=== PATIENT | female | born 1960 ===

== ENCOUNTER 2020-12-03 16:44 | Inpatient (IN) | payer OTHER ==
[~2020-12-03] VITALS: Ht 157.5 cm; Wt 57.9 kg
[2020-12-03 19:21] LABS: COVID AG,FIA SOURCE NASOPHARYNGEAL
[2020-12-03 20:11] LABS: APPEARANCE,URINE CLEAR (CLEAR); BILIRUBIN,URINE NEGATIVE (NEGATIVE); GLUCOSE, URINE (UA) 100 mg/dL (NEGATIVE); KETONES,URINE NEGATIVE (NEGATIVE); LEUKOCYTE ESTERASE ,URINE NEGATIVE (NEGATIVE); NITRATE,URINE NEGATIVE (NEGATIVE); OCCULT BLOOD,URINE SMALL (NEGATIVE); PROTEIN,URINE SEE CONFIRM (NEGATIVE); UROBILINOGEN,URINE 0.2 mg/dL (<=1.0)
[2020-12-03 20:19] LABS: AMPHET/METH SCREEN,URINE NEGATIVE (NEGATIVE); BARBITURATE SCREEN, URINE NEGATIVE (NEGATIVE); BENZODIAZEPINES SCREEN,URINE NEGATIVE (NEGATIVE); CANNABINOID SCREEN,URINE NEGATIVE (NEGATIVE); COCAINE SCREEN,URINE NEGATIVE (NEGATIVE); METHADONE SCREEN, URINE NEGATIVE (NEGATIVE); OPIATE SCREEN,URINE NEGATIVE (NEGATIVE)
[2020-12-03 20:21] LABS: PHENCYCLIDINE SCREEN,URINE NEGATIVE (NEGATIVE)
[2020-12-03 20:39] LABS: BACTERIA,URINE Rare /HPF (None Seen); SQUAMOUS EPITHELIAL CELL,UR Few /LPF (None Seen); SULFOSALICYLIC ACID,URINE 3+ (Negative); WBC,URINE 0-2 /HPF (0-5)
[2020-12-03 21:32] LABS: GLUCOMETER DEV NAME(LOC) ERT.5; GLUCOSE,POINT OF CARE 59 MG/DL (70-110)
[2020-12-03] MEDS ORDERED: ACETAMINOPHEN 325 MG TABLET PO PRN (21:45)
[2020-12-03] MEDS ORDERED: ONDANSETRON HCL 4 MG/2 ML VIAL IVP PRN (21:45)
[2020-12-03] MEDS ORDERED: BISACODYL 10 MG RECTAL RECTAL SUPPOSITORY PR PRN (21:45)
[2020-12-03] MEDS ORDERED: ZOLPIDEM TARTRATE 5 MG TABLET PO PRN (21:45)
[2020-12-03] MEDS ORDERED: MAGNESIUM HYDROXIDE SUSPENSION 30 ML UDCUP PO PRN (21:45)
[2020-12-03] MEDS ORDERED: LEVO50 PO (21:51)
[2020-12-03] MEDS ORDERED: FOLI-130 PO (21:53)
[2020-12-03] MEDS ORDERED: HYDR25TA2 PO (21:58)
[2020-12-03] MEDS ORDERED: METF-960 PO (21:58)
[2020-12-03 22:19] LABS: BASOPHILS % (AUTO) 0.6 % (0.0-2.0); EOSINOPHILS % (AUTO) 9.1 % (1.0-6.0); HEMATOCRIT 36.6 % (36-46); LYMPHOCYTES # (AUTO) 0.9 K/uL (1.0-4.8); LYMPHOCYTES % (AUTO) 21.3 % (22.0-44.0); MEAN CORPUSCULAR HEMOGLOBIN 26.8 pg (26.0-34.0); MEAN CORPUSCULAR HGB CONC 32.7 G/dL (31.0-37.0); MEAN CORPUSCULAR VOLUME 82 fL (80-100); MONOCYTES # (AUTO) 0.4 K/uL (0.1-1.0); MONOCYTES % (AUTO) 9.1 % (2.0-9.0); NEUTROPHILS # (AUTO) 2.6 K/uL (1.8-7.7); NEUTROPHILS % (AUTO) 59.9 % (40.0-70.0); PLATELET COUNT (AUTO) 264 K/uL (150-450); RED BLOOD CELL COUNT(AUTO) 4.48 MIL/uL (4.00-5.20); RED CELL DISTRIBUTION WIDTH 23.4 % (11.5-14.5)
[2020-12-03 22:35] VITALS: BP 142/81
[2020-12-03 22:36] LABS: ALANINE AMINOTRANSFERASE 17 U/L (12-78); ALBUMIN 3.3 g/dL (3.4-5.0); ALKALINE PHOSPHATASE 96 U/L (46-116); ANION GAP 15 mmol/L (8-16); ASPARTATE AMINOTRANSFERASE 22 U/L (15-37); BILIRUBIN,TOTAL 0.8 mg/dL (0.1-1.0); CALCIUM, TOTAL 8.1 mg/dL (8.8-10.5); CARBON DIOXIDE 25 mmol/L (22-29); CHLORIDE 104 mmol/L (98-107); GLOMERULAR FILTR. RATE CALC > 60 mL/min (>60); GLUCOSE,RANDOM 78 mg/dL (70-110); SODIUM SERUM 144 mmol/L (136-145); TOTAL PROTEIN, SERUM 7.2 g/dL (6.4-8.2); UREA NITROGEN, BLOOD 12 mg/dL (7-18)
[2020-12-03] MEDS ORDERED: HYD50 PO (22:41)
[2020-12-03 22:46] LABS: POTASSIUM 2.7 mmol/L (3.5-5.1)
[2020-12-03] MEDS ORDERED: POTASSIUM CHLORIDE 20 MEQ ER TABLET PO ONE (23:00)
[2020-12-03 23:25] LABS: PHOSPHORUS 3.4 mg/dL (2.5-4.9)
[2020-12-04 01:27] LABS: GLUCOMETER DEV NAME(LOC) 6S.1; GLUCOSE,POINT OF CARE 86 MG/DL (70-110)
[2020-12-04] MEDS ORDERED: POTASSIUM CHLORIDE 20 MEQ ER TABLET PO ONE (03:00)
[2020-12-04 05:14] VITALS: BP 124/67
[2020-12-04 07:57] VITALS: BP 143/72
[2020-12-04] MEDS: HEPARIN SODIUM,PORCINE 5,000 UNITS/ML VIAL SQ SCH ×3 (08:00→16:00)
[2020-12-04 15:53] LABS: GLUCOMETER DEV NAME(LOC) 6S.1; GLUCOSE,POINT OF CARE 72 MG/DL (70-110)
[2020-12-04 19:37] VITALS: BP 132/73
[2020-12-05 04:34] LABS: GLUCOMETER DEV NAME(LOC) 6S.1; GLUCOSE,POINT OF CARE 57 MG/DL (70-110)
[2020-12-05 04:34] LABS: GLUCOMETER DEV NAME(LOC) 6S.1; GLUCOSE,POINT OF CARE 58 MG/DL (70-110)
[2020-12-05 04:34] LABS: GLUCOMETER DEV NAME(LOC) 6S.1; GLUCOSE,POINT OF CARE 78 MG/DL (70-110)
[2020-12-05 04:50] VITALS: BP 139/86
[2020-12-05 07:11] LABS: GLUCOMETER DEV NAME(LOC) 6N.1; GLUCOSE,POINT OF CARE 50 MG/DL (70-110)
[2020-12-05 07:11] LABS: GLUCOMETER DEV NAME(LOC) 6S.1; GLUCOSE,POINT OF CARE 78 MG/DL (70-110)
[2020-12-05 07:33] VITALS: BP 145/74
[2020-12-05] MEDS: HEPARIN SODIUM,PORCINE 5,000 UNITS/ML VIAL SQ SCH ×3 (08:00→15:24)
[2020-12-05 20:01] VITALS: BP 154/79
[2020-12-05 20:47] LABS: GLUCOMETER DEV NAME(LOC) 6N.1; GLUCOSE,POINT OF CARE 73 MG/DL (70-110)
[2020-12-06 04:30] VITALS: BP 143/76
[2020-12-06 05:25] LABS: GLUCOMETER DEV NAME(LOC) 6S.1; GLUCOSE,POINT OF CARE 84 MG/DL (70-110)
[2020-12-06] MEDS: HEPARIN SODIUM,PORCINE 5,000 UNITS/ML VIAL SQ SCH ×3 (08:00→15:09)
[2020-12-06 13:46] LABS: GLUCOMETER DEV NAME(LOC) 6S.1; GLUCOSE,POINT OF CARE 92 MG/DL (70-110)
[2020-12-06 20:40] VITALS: BP 133/83
[2020-12-06 21:54] LABS: GLUCOMETER DEV NAME(LOC) 6N.1; GLUCOSE,POINT OF CARE 77 MG/DL (70-110)
[2020-12-07 04:00] VITALS: BP 131/75
[2020-12-07 08:00] VITALS: BP 141/85
[2020-12-07] MEDS: HEPARIN SODIUM,PORCINE 5,000 UNITS/ML VIAL SQ SCH ×4 (08:00→23:31)
[2020-12-07 20:31] VITALS: BP 133/71
[2020-12-07 23:50] LABS: GLUCOMETER DEV NAME(LOC) 6N.1; GLUCOSE,POINT OF CARE 148 MG/DL (70-110)
[2020-12-08 05:27] VITALS: BP 128/69
[2020-12-08 06:38] LABS: GLUCOMETER DEV NAME(LOC) 6N.1; GLUCOSE,POINT OF CARE 84 MG/DL (70-110)
[2020-12-08] MEDS: HEPARIN SODIUM,PORCINE 5,000 UNITS/ML VIAL SQ SCH ×3 (08:00→23:47)
[2020-12-08 10:30] VITALS: BP 134/82
[2020-12-08 15:31] VITALS: BP 138/83
[2020-12-08 20:11] VITALS: BP 142/82
[2020-12-08 21:50] LABS: GLUCOMETER DEV NAME(LOC) 6S.1; GLUCOSE,POINT OF CARE 109 MG/DL (70-110)
[2020-12-09 05:21] VITALS: BP 155/89
[2020-12-09] MEDS: HEPARIN SODIUM,PORCINE 5,000 UNITS/ML VIAL SQ SCH ×2 (07:58→16:00)
[2020-12-09 08:05] VITALS: BP 122/75
[2020-12-09 20:33] VITALS: BP 132/75
[2020-12-10 04:20] VITALS: BP 134/76
[2020-12-10] MEDS: HEPARIN SODIUM,PORCINE 5,000 UNITS/ML VIAL SQ SCH ×4 (07:24→23:32)
[2020-12-10 07:33] VITALS: BP 138/71
[2020-12-10] MEDS: MIRTAZAPINE 15 MG TABLET PO SCH ×2 (13:45→20:20)
[2020-12-10] MEDS: OLANZapine 5 MG TABLET PO SCH ×2 (13:45→20:20)
[2020-12-10 20:21] VITALS: BP 135/74
[2020-12-11 04:42] VITALS: BP 141/85
[2020-12-11] MEDS: HEPARIN SODIUM,PORCINE 5,000 UNITS/ML VIAL SQ SCH ×2 (08:00→15:52)
[2020-12-11 08:13] VITALS: BP 143/77
[2020-12-11] MEDS: MIRTAZAPINE 15 MG TABLET PO SCH ×2 (09:00→20:48)
[2020-12-11] MEDS: OLANZapine 5 MG TABLET PO SCH ×2 (09:00→20:48)
[2020-12-11 19:57] VITALS: BP 130/77
[2020-12-12] MEDS: HEPARIN SODIUM,PORCINE 5,000 UNITS/ML VIAL SQ SCH ×4 (08:00→23:17)
[2020-12-12] MEDS: OLANZapine 5 MG TABLET PO SCH ×2 (09:00→20:09)
[2020-12-12] MEDS: MIRTAZAPINE 15 MG TABLET PO SCH ×2 (09:00→20:09)
[2020-12-12 19:59] VITALS: BP 136/59
[2020-12-13 05:29] VITALS: BP 139/65
[2020-12-13] MEDS: HEPARIN SODIUM,PORCINE 5,000 UNITS/ML VIAL SQ SCH ×3 (08:00→23:56)
[2020-12-13] MEDS: MIRTAZAPINE 15 MG TABLET PO SCH ×2 (09:00→20:41)
[2020-12-13] MEDS: OLANZapine 5 MG TABLET PO SCH ×2 (09:00→20:41)
[2020-12-13 20:11] VITALS: BP 133/73
[2020-12-14 04:51] VITALS: BP 155/75
[2020-12-14] MEDS: HEPARIN SODIUM,PORCINE 5,000 UNITS/ML VIAL SQ SCH ×2 (08:00→16:00)
[2020-12-14 08:27] VITALS: BP 144/70
[2020-12-14] MEDS: MIRTAZAPINE 15 MG TABLET PO SCH ×2 (08:55→21:00)
[2020-12-14] MEDS: OLANZapine 5 MG TABLET PO SCH ×2 (08:55→21:00)
[2020-12-14 12:47] LABS: GLUCOMETER DEV NAME(LOC) 6S.1; GLUCOSE,POINT OF CARE 156 MG/DL (70-110)
[2020-12-14 15:48] VITALS: BP 127/71
[2020-12-14 18:11] LABS: GLUCOMETER DEV NAME(LOC) 6N.1; GLUCOSE,POINT OF CARE 80 MG/DL (70-110)
[2020-12-14 19:45] VITALS: BP 128/79
[2020-12-15 04:40] VITALS: BP 127/72
[2020-12-15] MEDS: HEPARIN SODIUM,PORCINE 5,000 UNITS/ML VIAL SQ SCH ×4 (08:00→23:29)
[2020-12-15 08:03] VITALS: BP 147/81
[2020-12-15] MEDS: MIRTAZAPINE 15 MG TABLET PO SCH ×2 (09:00→20:29)
[2020-12-15] MEDS: OLANZapine 5 MG TABLET PO SCH ×2 (09:00→20:29)
[2020-12-15 14:32] LABS: GLUCOMETER DEV NAME(LOC) 6N.1; GLUCOSE,POINT OF CARE 112 MG/DL (70-110)
[2020-12-15 19:52] VITALS: BP 130/80
[2020-12-16 05:18] VITALS: BP 143/87
[2020-12-16 07:36] VITALS: BP 145/86
[2020-12-16] MEDS: HEPARIN SODIUM,PORCINE 5,000 UNITS/ML VIAL SQ SCH ×3 (08:00→23:04)
[2020-12-16] MEDS: OLANZapine 5 MG TABLET PO SCH ×2 (08:58→21:00)
[2020-12-16] MEDS: MIRTAZAPINE 15 MG TABLET PO SCH ×2 (08:58→21:00)
[2020-12-16 12:56] LABS: GLUCOMETER DEV NAME(LOC) 6N.1; GLUCOSE,POINT OF CARE 92 MG/DL (70-110)
[2020-12-17 05:19] VITALS: BP 154/82
[2020-12-17] MEDS: HEPARIN SODIUM,PORCINE 5,000 UNITS/ML VIAL SQ SCH ×3 (08:00→23:05)
[2020-12-17] MEDS: MIRTAZAPINE 15 MG TABLET PO SCH ×2 (08:17→21:00)
[2020-12-17] MEDS: OLANZapine 5 MG TABLET PO SCH ×2 (08:17→21:00)
[2020-12-17 16:00] VITALS: BP 141/81
[2020-12-17 19:06] LABS: GLUCOMETER DEV NAME(LOC) 6S.1; GLUCOSE,POINT OF CARE 112 MG/DL (70-110)
[2020-12-17 20:51] VITALS: BP 124/71
[2020-12-18] MEDS: HEPARIN SODIUM,PORCINE 5,000 UNITS/ML VIAL SQ SCH ×2 (08:00→16:00)
[2020-12-18 08:03] VITALS: BP 140/72
[2020-12-18] MEDS: MIRTAZAPINE 15 MG TABLET PO SCH ×2 (08:08→21:00)
[2020-12-18] MEDS: OLANZapine 5 MG TABLET PO SCH ×2 (08:08→21:00)
[2020-12-18 13:58] LABS: GLUCOMETER DEV NAME(LOC) 6N.1; GLUCOSE,POINT OF CARE 93 MG/DL (70-110)
[2020-12-18 19:45] VITALS: BP 142/75
[2020-12-19 07:39] VITALS: BP 125/68
[2020-12-19] MEDS: HEPARIN SODIUM,PORCINE 5,000 UNITS/ML VIAL SQ SCH ×3 (08:00→15:42)
[2020-12-19] MEDS: OLANZapine 5 MG TABLET PO SCH ×2 (09:00→20:30)
[2020-12-19] MEDS: MIRTAZAPINE 15 MG TABLET PO SCH ×2 (09:00→20:30)
[2020-12-19] MEDS ORDERED: HALOPERIDOL LACTATE 5 MG/ML VIAL IM PRN (14:45)
[2020-12-19] MEDS: HALOPERIDOL LACTATE 5 MG/ML VIAL IM PRN (20:20)
[2020-12-19 23:50] LABS: GLUCOMETER DEV NAME(LOC) 6N.1; GLUCOSE,POINT OF CARE 113 MG/DL (70-110)
[2020-12-20] MEDS: HEPARIN SODIUM,PORCINE 5,000 UNITS/ML VIAL SQ SCH ×3 (08:00→15:35)
[2020-12-20 08:02] VITALS: BP 122/75
[2020-12-20] MEDS: MIRTAZAPINE 15 MG TABLET PO SCH ×2 (08:42→20:41)
[2020-12-20] MEDS: OLANZapine 5 MG TABLET PO SCH ×2 (08:42→20:42)
[2020-12-20] MEDS: HALOPERIDOL LACTATE 5 MG/ML VIAL IM PRN (09:08)
[2020-12-20 19:35] VITALS: BP 120/75
[2020-12-21 04:20] VITALS: BP 122/73
[2020-12-21 07:30] VITALS: BP 149/88
[2020-12-21] MEDS: HEPARIN SODIUM,PORCINE 5,000 UNITS/ML VIAL SQ SCH ×4 (08:00→22:57)
[2020-12-21] MEDS: OLANZapine 5 MG TABLET PO SCH ×2 (08:04→21:08)
[2020-12-21] MEDS: MIRTAZAPINE 15 MG TABLET PO SCH ×2 (08:04→21:08)
[2020-12-21 18:13] LABS: GLUCOMETER DEV NAME(LOC) 6S.1; GLUCOSE,POINT OF CARE 105 MG/DL (70-110)
[2020-12-21 19:50] VITALS: BP 140/78
[2020-12-21 21:57] LABS: GLUCOMETER DEV NAME(LOC) 6S.1; GLUCOSE,POINT OF CARE 143 MG/DL (70-110)
[2020-12-22 04:45] VITALS: BP 139/79
[2020-12-22] MEDS: HEPARIN SODIUM,PORCINE 5,000 UNITS/ML VIAL SQ SCH ×3 (08:00→23:41)
[2020-12-22] MEDS: OLANZapine 5 MG TABLET PO SCH ×3 (08:06→08:19)
[2020-12-22] MEDS: MIRTAZAPINE 15 MG TABLET PO SCH ×4 (08:06→20:06)
[2020-12-22] MEDS: HALOPERIDOL LACTATE 5 MG/ML VIAL IM PRN (08:15)
[2020-12-22] MEDS: OLANZapine 10 MG TABLET PO SCH ×2 (08:57→20:06)
[2020-12-22 16:01] VITALS: BP 123/80
[2020-12-22 20:10] VITALS: BP 137/76
[2020-12-22 22:03] LABS: GLUCOMETER DEV NAME(LOC) 6N.1; GLUCOSE,POINT OF CARE 76 MG/DL (70-110)
[2020-12-22 22:03] LABS: GLUCOMETER DEV NAME(LOC) 6S.1; GLUCOSE,POINT OF CARE 117 MG/DL (70-110)
[2020-12-23 05:19] VITALS: BP 148/78
[2020-12-23] MEDS: HEPARIN SODIUM,PORCINE 5,000 UNITS/ML VIAL SQ SCH ×2 (08:00→16:00)
[2020-12-23] MEDS: OLANZapine 10 MG TABLET PO SCH ×2 (08:06→20:52)
[2020-12-23] MEDS: MIRTAZAPINE 15 MG TABLET PO SCH ×2 (08:06→20:52)
[2020-12-23 14:32] LABS: GLUCOMETER DEV NAME(LOC) 6N.1; GLUCOSE,POINT OF CARE 148 MG/DL (70-110)
[2020-12-23 19:41] VITALS: BP 141/78
[2020-12-23 19:56] LABS: GLUCOMETER DEV NAME(LOC) 6S.1; GLUCOSE,POINT OF CARE 129 MG/DL (70-110)
[2020-12-23 21:08] LABS: GLUCOMETER DEV NAME(LOC) 6S.1; GLUCOSE,POINT OF CARE 119 MG/DL (70-110)
[2020-12-24 05:11] VITALS: BP 134/73
[2020-12-24] MEDS: HEPARIN SODIUM,PORCINE 5,000 UNITS/ML VIAL SQ SCH ×4 (08:00→23:45)
[2020-12-24 08:37] VITALS: BP 137/79
[2020-12-24] MEDS: OLANZapine 10 MG TABLET PO SCH ×2 (09:30→21:22)
[2020-12-24] MEDS: MIRTAZAPINE 15 MG TABLET PO SCH ×2 (09:30→21:21)
[2020-12-24 18:56] LABS: GLUCOMETER DEV NAME(LOC) 6S.1; GLUCOSE,POINT OF CARE 108 MG/DL (70-110)
[2020-12-24 19:45] VITALS: BP 119/88
[2020-12-25 05:12] VITALS: BP 142/81
[2020-12-25] MEDS: HEPARIN SODIUM,PORCINE 5,000 UNITS/ML VIAL SQ SCH ×2 (08:00→16:00)
[2020-12-25] MEDS: MIRTAZAPINE 15 MG TABLET PO SCH ×2 (08:52→20:54)
[2020-12-25] MEDS: OLANZapine 10 MG TABLET PO SCH ×2 (08:52→20:54)
[2020-12-25 12:52] LABS: GLUCOMETER DEV NAME(LOC) 6N.1; GLUCOSE,POINT OF CARE 120 MG/DL (70-110)
[2020-12-25 16:13] VITALS: BP 129/79
[2020-12-25 21:18] LABS: GLUCOMETER DEV NAME(LOC) 6N.1; GLUCOSE,POINT OF CARE 120 MG/DL (70-110)
[2020-12-25 21:23] VITALS: BP 139/51
[2020-12-26 05:08] VITALS: BP 135/76
[2020-12-26] MEDS: HEPARIN SODIUM,PORCINE 5,000 UNITS/ML VIAL SQ SCH ×3 (08:00→15:25)
[2020-12-26] MEDS: OLANZapine 10 MG TABLET PO SCH ×3 (09:00→21:39)
[2020-12-26] MEDS: MIRTAZAPINE 15 MG TABLET PO SCH ×3 (09:00→21:38)
[2020-12-26 15:45] LABS: GLUCOMETER DEV NAME(LOC) 6N.1; GLUCOSE,POINT OF CARE 96 MG/DL (70-110)
[2020-12-26 20:50] VITALS: BP 122/74
[2020-12-26 22:39] LABS: GLUCOMETER DEV NAME(LOC) 6S.1; GLUCOSE,POINT OF CARE 122 MG/DL (70-110)
[2020-12-27 04:38] VITALS: BP 138/79
[2020-12-27] MEDS: HEPARIN SODIUM,PORCINE 5,000 UNITS/ML VIAL SQ SCH ×3 (08:00→16:00)
[2020-12-27 08:11] VITALS: BP 129/83
[2020-12-27] MEDS: MIRTAZAPINE 15 MG TABLET PO SCH ×2 (08:50→20:58)
[2020-12-27] MEDS: OLANZapine 10 MG TABLET PO SCH ×2 (08:51→20:58)
[2020-12-27 13:11] LABS: GLUCOMETER DEV NAME(LOC) 6S.1; GLUCOSE,POINT OF CARE 125 MG/DL (70-110)
[2020-12-27 20:10] VITALS: BP 139/80
[2020-12-27 20:50] LABS: GLUCOMETER DEV NAME(LOC) 6S.1; GLUCOSE,POINT OF CARE 105 MG/DL (70-110)
[2020-12-28 04:33] VITALS: BP 144/81
[2020-12-28 07:34] VITALS: BP 141/77
[2020-12-28] MEDS: HEPARIN SODIUM,PORCINE 5,000 UNITS/ML VIAL SQ SCH ×3 (08:00→16:00)
[2020-12-28] MEDS: OLANZapine 10 MG TABLET PO SCH ×2 (08:01→21:00)
[2020-12-28] MEDS: MIRTAZAPINE 15 MG TABLET PO SCH ×2 (08:01→21:00)
[2020-12-28 11:34] LABS: GLUCOMETER DEV NAME(LOC) 6N.1; GLUCOSE,POINT OF CARE 151 MG/DL (70-110)
[2020-12-28 17:36] LABS: GLUCOMETER DEV NAME(LOC) 6S.1; GLUCOSE,POINT OF CARE 119 MG/DL (70-110)
[2020-12-28 20:02] VITALS: BP 115/73
[2020-12-29 05:58] VITALS: BP 145/77
[2020-12-29] MEDS: HEPARIN SODIUM,PORCINE 5,000 UNITS/ML VIAL SQ SCH ×3 (08:00→16:00)
[2020-12-29] MEDS: AmLODIPine BESYLATE 5 MG TABLET PO SCH ×2 (08:56→09:00)
[2020-12-29] MEDS: MIRTAZAPINE 15 MG TABLET PO SCH ×2 (08:56→20:08)
[2020-12-29] MEDS: OLANZapine 10 MG TABLET PO SCH ×2 (08:56→20:08)
[2020-12-29 11:59] LABS: GLUCOMETER DEV NAME(LOC) 6N.1; GLUCOSE,POINT OF CARE 84 MG/DL (70-110)
[2020-12-29 12:05] LABS: BASOPHILS % (AUTO) 0.6 % (0.0-2.0); EOSINOPHILS % (AUTO) 7.9 % (1.0-6.0); HEMATOCRIT 33.6 % (36-46); HEMOGLOBIN 11.3 g/dL (12.0-16.0); LYMPHOCYTES % (AUTO) 20.1 % (22.0-44.0); MEAN CORPUSCULAR HEMOGLOBIN 28.3 pg (26.0-34.0); MEAN CORPUSCULAR HGB CONC 33.7 G/dL (31.0-37.0); MEAN CORPUSCULAR VOLUME 84 fL (80-100); MONOCYTES # (AUTO) 0.4 K/uL (0.1-1.0); MONOCYTES % (AUTO) 8.8 % (2.0-9.0); NEUTROPHILS # (AUTO) 3.2 K/uL (1.8-7.7); NEUTROPHILS % (AUTO) 62.6 % (40.0-70.0); PLATELET COUNT (AUTO) 275 K/uL (150-450); RED CELL DISTRIBUTION WIDTH 19.1 % (11.5-14.5)
[2020-12-29 12:32] LABS: ALANINE AMINOTRANSFERASE 20 U/L (12-78); ALBUMIN 2.5 g/dL (3.4-5.0); ALKALINE PHOSPHATASE 138 U/L (46-116); ANION GAP 10 mmol/L (8-16); ASPARTATE AMINOTRANSFERASE 18 U/L (15-37); BILIRUBIN,TOTAL 0.5 mg/dL (0.1-1.0); CALCIUM, TOTAL 8.4 mg/dL (8.8-10.5); CARBON DIOXIDE 28 mmol/L (22-29); CHLORIDE 105 mmol/L (98-107); CREATININE 0.76 mg/dL (0.60-1.30); GLOMERULAR FILTR. RATE CALC > 60 mL/min (>60); GLUCOSE,RANDOM 97 mg/dL (70-110); POTASSIUM 3.5 mmol/L (3.5-5.1); SODIUM SERUM 143 mmol/L (136-145); TOTAL PROTEIN, SERUM 6.3 g/dL (6.4-8.2); UREA NITROGEN, BLOOD 7 mg/dL (7-18)
[2020-12-29 17:00] LABS: GLUCOMETER DEV NAME(LOC) 6N.1; GLUCOSE,POINT OF CARE 123 MG/DL (70-110)
[2020-12-29 23:48] LABS: GLUCOMETER DEV NAME(LOC) 6S.1; GLUCOSE,POINT OF CARE 111 MG/DL (70-110)
[2020-12-30] VITALS: BP 126/75
[2020-12-30 04:55] VITALS: BP 143/86
[2020-12-30 07:54] VITALS: BP 134/76
[2020-12-30] MEDS: HEPARIN SODIUM,PORCINE 5,000 UNITS/ML VIAL SQ SCH ×3 (08:00→16:00)
[2020-12-30] MEDS: AmLODIPine BESYLATE 5 MG TABLET PO SCH (09:00)
[2020-12-30] MEDS: MIRTAZAPINE 15 MG TABLET PO SCH ×2 (09:21→19:58)
[2020-12-30] MEDS: OLANZapine 10 MG TABLET PO SCH ×2 (09:21→19:58)
[2020-12-30 21:36] VITALS: BP 112/67
[2020-12-30 21:41] LABS: GLUCOMETER DEV NAME(LOC) 6S.1; GLUCOSE,POINT OF CARE 123 MG/DL (70-110)
[2020-12-31] MEDS: HEPARIN SODIUM,PORCINE 5,000 UNITS/ML VIAL SQ SCH ×3 (08:00→16:00)
[2020-12-31 08:01] VITALS: BP 130/72
[2020-12-31] MEDS: AmLODIPine BESYLATE 5 MG TABLET PO SCH (09:00)
[2020-12-31] MEDS: MIRTAZAPINE 15 MG TABLET PO SCH ×2 (09:22→19:45)
[2020-12-31] MEDS: OLANZapine 10 MG TABLET PO SCH ×2 (09:22→19:45)
[2020-12-31 14:43] LABS: GLUCOMETER DEV NAME(LOC) 6N.1; GLUCOSE,POINT OF CARE 178 MG/DL (70-110)
[2020-12-31 15:27] VITALS: BP 149/93
[2020-12-31 19:40] LABS: GLUCOMETER DEV NAME(LOC) 6N.1; GLUCOSE,POINT OF CARE 167 MG/DL (70-110)
[2020-12-31 19:55] VITALS: BP 144/71
[2021-01-01 04:50] VITALS: BP 134/77
[2021-01-01] MEDS: HEPARIN SODIUM,PORCINE 5,000 UNITS/ML VIAL SQ SCH ×3 (08:00→15:58)
[2021-01-01] MEDS: MIRTAZAPINE 15 MG TABLET PO SCH (08:10)
[2021-01-01 08:20] VITALS: BP 151/85
[2021-01-01] MEDS: AmLODIPine BESYLATE 5 MG TABLET PO SCH (09:00)
[2021-01-01] MEDS: OLANZapine 10 MG TABLET PO SCH ×3 (10:14→21:00)
[2021-01-01 14:29] LABS: GLUCOMETER DEV NAME(LOC) 6N.1; GLUCOSE,POINT OF CARE 111 MG/DL (70-110)
[2021-01-01 20:20] VITALS: BP 121/77
[2021-01-01] MEDS: MIRTAZAPINE 30 MG TABLET PO SCH (20:59)
[2021-01-02] MEDS: HEPARIN SODIUM,PORCINE 5,000 UNITS/ML VIAL SQ SCH ×4 (08:00→23:29)
[2021-01-02 08:44] VITALS: BP 122/71
[2021-01-02] MEDS: AmLODIPine BESYLATE 5 MG TABLET PO SCH (09:00)
[2021-01-02] MEDS: OLANZapine 10 MG TABLET PO SCH ×2 (11:16→20:38)
[2021-01-02] MEDS: MIRTAZAPINE 30 MG TABLET PO SCH ×2 (20:38→20:41)
[2021-01-02 21:09] VITALS: BP 152/82
[2021-01-03] MEDS: HEPARIN SODIUM,PORCINE 5,000 UNITS/ML VIAL SQ SCH ×3 (08:00→23:15)
[2021-01-03 08:32] VITALS: BP 121/68
[2021-01-03] MEDS: AmLODIPine BESYLATE 5 MG TABLET PO SCH (09:00)
[2021-01-03] MEDS: OLANZapine 10 MG TABLET PO SCH ×2 (10:09→20:31)
[2021-01-03 20:18] VITALS: BP 140/75
[2021-01-03] MEDS: MIRTAZAPINE 30 MG TABLET PO SCH (20:36)
[2021-01-04 03:37] VITALS: BP 131/88
[2021-01-04] MEDS: HEPARIN SODIUM,PORCINE 5,000 UNITS/ML VIAL SQ SCH ×3 (08:00→23:35)
[2021-01-04] MEDS: MULTIVITAMINS WITH MINERALS, THERAPEUTIC TABLET PO SCH (09:00)
[2021-01-04] MEDS: THIAMINE 100 MG TABLET PO SCH (09:00)
[2021-01-04] MEDS: AmLODIPine BESYLATE 5 MG TABLET PO SCH (09:00)
[2021-01-04] MEDS: OLANZapine 10 MG TABLET PO SCH ×2 (09:43→20:17)
[2021-01-04 16:11] VITALS: BP 129/67
[2021-01-04 19:42] VITALS: BP 130/78
[2021-01-04] MEDS: MIRTAZAPINE 30 MG TABLET PO SCH (20:17)
[2021-01-05 05:06] VITALS: BP 136/73
[2021-01-05] MEDS: HEPARIN SODIUM,PORCINE 5,000 UNITS/ML VIAL SQ SCH ×3 (08:00→23:31)
[2021-01-05 08:08] VITALS: BP 128/20
[2021-01-05] MEDS: MULTIVITAMINS WITH MINERALS, THERAPEUTIC TABLET PO SCH (09:00)
[2021-01-05] MEDS: THIAMINE 100 MG TABLET PO SCH (09:00)
[2021-01-05] MEDS: AmLODIPine BESYLATE 5 MG TABLET PO SCH (09:00)
[2021-01-05] MEDS: OLANZapine 10 MG TABLET PO SCH ×2 (09:58→20:26)
[2021-01-05 16:10] VITALS: BP 129/85
[2021-01-05 19:36] VITALS: BP 125/88
[2021-01-05] MEDS: MIRTAZAPINE 30 MG TABLET PO SCH (20:26)
[2021-01-05 23:22] LABS: GLUCOMETER DEV NAME(LOC) 6N.1; GLUCOSE,POINT OF CARE 126 MG/DL (70-110)
[2021-01-06] MEDS: HEPARIN SODIUM,PORCINE 5,000 UNITS/ML VIAL SQ SCH ×3 (08:00→23:44)
[2021-01-06 08:02] VITALS: BP 125/82
[2021-01-06] MEDS: OLANZapine 10 MG TABLET PO SCH ×2 (08:20→20:28)
[2021-01-06] MEDS: THIAMINE 100 MG TABLET PO SCH (08:21)
[2021-01-06] MEDS: MULTIVITAMINS WITH MINERALS, THERAPEUTIC TABLET PO SCH (08:21)
[2021-01-06] MEDS ORDERED: IBUPROFEN 400 MG TABLET PO PRN (08:45)
[2021-01-06 15:31] VITALS: BP 144/74
[2021-01-06] MEDS: MIRTAZAPINE 30 MG TABLET PO SCH ×2 (20:28→20:32)
[2021-01-07 05:27] VITALS: BP 126/75
[2021-01-07 06:29] LABS: GLUCOMETER DEV NAME(LOC) 6S.1; GLUCOSE,POINT OF CARE 87 MG/DL (70-110)
[2021-01-07] MEDS: HEPARIN SODIUM,PORCINE 5,000 UNITS/ML VIAL SQ SCH ×2 (08:00→16:00)
[2021-01-07] MEDS: OLANZapine 10 MG TABLET PO SCH ×2 (08:34→20:19)
[2021-01-07] MEDS: MULTIVITAMINS WITH MINERALS, THERAPEUTIC TABLET PO SCH (08:38)
[2021-01-07] MEDS: THIAMINE 100 MG TABLET PO SCH (08:38)
[2021-01-07 15:19] VITALS: BP 134/75
[2021-01-07] MEDS ORDERED: MIRT30 PO (17:23)
[2021-01-07] MEDS ORDERED: MULT-1239 PO (17:24)
[2021-01-07] MEDS ORDERED: OLAN10TA74 PO (17:25)
[2021-01-07] MEDS ORDERED: ACET-3207 PO (17:26)
[2021-01-07] MEDS ORDERED: IBUP-1506 PO (17:26)
[2021-01-07] MEDS ORDERED: MOM30 PO (17:28)
[2021-01-07 20:03] VITALS: BP 116/72
[2021-01-07] MEDS: MIRTAZAPINE 30 MG TABLET PO SCH ×2 (20:19→20:21)
[2021-01-08] MEDS: HEPARIN SODIUM,PORCINE 5,000 UNITS/ML VIAL SQ SCH
== END 2021-01-08 08:25 | DRG 885 ==
LOC: EMS 16:50 → 6S 21:00
PROVIDERS: ADMIT Hospitalist; ATTEND Hospitalist
DX: F25.0 Schizoaffective disorder, bipolar type (principal); R45.851 Suicidal ideations; R80.9 Proteinuria, unspecified; I10 Essential (primary) hypertension; E11.9 Type 2 diabetes mellitus without complications; E03.9 Hypothyroidism, unspecified; M06.9 Rheumatoid arthritis, unspecified; N64.9 Disorder of breast, unspecified; Z53.20 Procedure and treatment not carried out because of patient's decision for unspecified reasons; Z20.822 Contact with and (suspected) exposure to COVID-19; M19.90 Unspecified osteoarthritis, unspecified site; Z91.19 Patient's noncompliance with other medical treatment and regimen
CPT/HCPCS: 80053; 81001; 81002; 82962; 83735; 84100; 84443; 85025; 87081; 99285; J1630; J1644